=== PATIENT | female | born 1980 ===

== ENCOUNTER 2016-11-30 10:36 | Emergency (ER) | payer MEDICAID ==
[2016-11-30 10:43] VITALS: BMI 22.3
[2016-11-30 10:44] VITALS: BP 129/66; RESP 20; TEMP 98.7; O2SAT 100
--- NOTE | 2016-11-30 11:47 | ED PDOC ---
HPI: Abdomen Time Seen by Provider: 11/30/16 10:55 Chief Complaint (Nursing): Palpitations Chief Complaint (Provider): Abdominal Pain History Per: Patient Additional Complaint(s): The patient is 36 yr old female with PMHx of anemia, presents to the ER with complaints of continued chest pain and palpitations x 1 month now, new onset epigastric abdominal pain. Seen in ED yesterday with the ssame complaints, Scheduled to see cardio oin Saturday. . Patient states she had similar symptoms in the past about 1 month ago. Patient reports she is on the depo shot. Patient denies fever, chest pain, nausea, vomiting, abdominal pain, diarrhea, back pain, headache, weakness or numbness. Past Medical History Reviewed: Nursing Documentation, Vital Signs Vital Signs: Last Vital Signs Temp 98.7 F 11/30/16 10:43 Pulse 66 11/30/16 11:51 Resp 20 11/30/16 10:43 BP 129/66 11/30/16 11:51 Pulse Ox 100 11/30/16 11:47 - Medical History PMH: Anemia - Family History Family History: States: Unknown Family Hx, Diabetes, Hypertension - Living Arrangements Living Arrangements: With Family - Social History Current smoker - smoking cessation education provided: No Alcohol: None Drugs: Denies - Immunization History Hx Tetanus Toxoid Vaccination: Yes Hx Influenza Vaccination: No Hx Pneumococcal Vaccination: No - Home Medications Home Medications: Ambulatory Orders Medication Instructions Recorded Ferrous Sulfate [Iron] 325 mg PO TID #90 capsule.er 11/22/16 methIMAzole [Tapazole] 10 mg PO 12/08/16 - Allergies Allergies/Adverse Reactions: Allergies Allergy/AdvReac Type Severity Reaction Status Date / Time No Known Allergies Allergy Verified 12/08/16 08:57 Review of Systems ROS Statement: Except As Marked, All Systems Reviewed And Found Negative Gastrointestinal: Positive for: Abdominal Pain Physical Exam - Reviewed Nursing Documentation Reviewed: Yes Vital Signs Reviewed: Yes - Physical Exam Appears: Positive for: Well, Non-toxic, No Acute Distress Head Exam: Positive for: ATRAUMATIC, NORMAL INSPECTION, NORMOCEPHALIC Skin: Positive for: Normal Color, Warm, DRY Eye Exam: Positive for: EOMI, Normal appearance, PERRL ENT: Positive for: Normal ENT Inspection Neck: Positive for: Normal, Painless ROM Cardiovascular/Chest: Positive for: Regular Rate, Rhythm Respiratory: Positive for: CNT, Normal Breath Sounds Gastrointestinal/Abdominal: Positive for: Bowel Sounds, Soft, Tenderness ( epigastric abdominal tenerness) Back: Positive for: Normal Inspection Extremity: Positive for: Normal ROM Neurologic/Psych: Positive for: Alert, Oriented - Laboratory Results Result Diagrams: 11/30/16 12:15 11/30/16 12:15 - ECG O2 Sat by Pulse Oximetry: 100 Medical Decision Making Medical Decision Making: CBC, COMP and UA resulted and discussed with Pt who demonstrated full understanding. Pt medicated with GI cocktail and Pepcid and great relief reported on re-eval abdomen soft, non tender and non distended on re-eval Disposition - Clinical Impression Clinical Impression: Gastritis - Patient ED Disposition Is Patient to be Admitted: No - Disposition Referrals: Jose Felix MD [Primary Care Provider] - Disposition: Routine/Home Disposition Time: 13:00 Condition: GOOD Instructions: Gastritis (ED)
[2016-11-30] MEDS ORDERED: Alum-Mag Hydrox-Simethicone Susp (30 mL) PO STA (11:48)
[2016-11-30 12:04] VITALS: PULSE 66
[2016-11-30 12:21] LABS: BASO % 0.3 % (0.0-2.0); EOS # 0.1 K/uL (0.0-0.7); EOS % 0.6 % (0.0-4.0); HEMATOCRIT 33.9 % (34.0-47.0); LYMPH # 1.4 K/uL (1.0-4.3); LYMPH % 17.8 % (20.0-40.0); MEAN CELL VOLUME 70.2 fl (81.0-99.0); MEAN CORPUSCULAR HEMOGLOBIN 21.1 pg (27.0-31.0); MEAN CORPUSCULAR HGB CONC 30.1 g/dL (33.0-37.0); MEAN PLATELET VOLUME 10.3 fl (7.2-11.7); MONO # 0.4 K/uL (0.0-0.8); MONO % 5.7 % (0.0-10.0); NEUT % 75.6 % (50.0-75.0); RED CELL DISTRIBUTION WIDTH 20.2 % (11.5-14.5); WHITE BLOOD COUNT 7.9 K/uL (4.8-10.8)
[2016-11-30 12:34] LABS: ALB/GLOB RATIO 1.2 (1.0-2.1); ALKALINE PHOSPHATASE 51 U/L (38-126); ALT/SGPT 11 U/L (9-52); AMYLASE 102 U/L (30-110); AST/SGOT 17 U/L (14-36); BILIRUBIN,TOTAL 0.4 mg/dl (0.2-1.3); BLOOD UREA NITROGEN 9 mg/dl (7-17); CALCIUM 9.2 mg/dL (8.4-10.2); CARBON DIOXIDE 22 mmol/L (22-30); CHLORIDE 108 mmol/L (98-107); GFR AFRICAN-AMERICAN > 60; GLUCOSE,RANDOM 100 mg/dL (65-105); LIPASE 91 U/L (23-300); POTASSIUM 4.1 MMOL/L (3.6-5.0); SODIUM 144 mmol/l (132-148); TOTAL PROTEIN 8.2 G/DL (6.3-8.2)
[2016-11-30 12:42] LABS: RBC URINE 1 /hpf (0-3); URINE BILIRUBIN NEGATIVE (NEGATIVE); URINE BLOOD NEGATIVE (NEGATIVE); URINE COLOR YELLOW (YELLOW); URINE GLUCOSE (UA) NEG (Normal); URINE KETONE NEGATIVE (NEGATIVE); URINE LEUKOCYTE ESTERASE TRACE Leu/uL (Negative); URINE PROTEIN NEGATIVE (NEGATIVE); URINE UROBILINOGEN 0.2-1.0 mg/dL (0.2-1.0); WBC URINE 1 /hpf (0-5)
[2016-11-30] MEDS ORDERED: Alum-Mag Hydrox-Simethicone Susp (30 mL) ONE (12:43)
--- NOTE | 2016-11-30 13:10 | RAD ---
PROCEDURE: CHEST RADIOGRAPH, 1 VIEW HISTORY: Chest pain COMPARISON: None available. FINDINGS: LUNGS: The lungs are well inflated and clear. PLEURA: No pneumothorax or pleural fluid seen. CARDIOVASCULAR: Normal. OSSEOUS STRUCTURES: No significant abnormalities. VISUALIZED UPPER ABDOMEN: Normal. OTHER FINDINGS: None. IMPRESSION: No active pulmonary disease.
--- NOTE | 2016-11-30 19:17 | CARD ---
APPROVED REPORT EKG Measurement Heart [id number] 126P32 [id number] <Conclusion> Normal sinus rhythm Normal ECG
== END 2016-11-30 17:30 | disposition home or self-care (01) ==
LOC: H.ER 10:36
DX: R07.9 Chest pain, unspecified (principal); D64.9 Anemia, unspecified; R10.13 Epigastric pain

== ENCOUNTER 2016-12-03 23:42 | Emergency (ER) | payer MEDICAID ==
[2016-12-03 23:44] VITALS: BMI 22.3
[2016-12-03 23:49] VITALS: BP 141/71; PULSE 84; RESP 18; TEMP 98.1; O2SAT 100
--- NOTE | 2016-12-04 02:08 | ED PDOC ---
HPI: Hypertension/Hypotension Time Seen by Provider: 12/04/16 01:00 Chief Complaint (Nursing): GI Problem Chief Complaint (Provider): palpitations History Per: Patient History/Exam Limitations: no limitations Onset/Duration Of Symptoms: Days (months), Waxing/Waning Current Symptoms Are (Timing): Gone Now Additional History Per: Patient Additional Complaint(s): 36 y/o female brought in by EMS for eval of intermittent palpitations x months. Patient notes most recent episode after laying down to go to bed. Patient notes associated nausea when she gets palpitations. Patient has appt to see press hand next week. Patient seen twice last week for same. Denies fever, headache, dizziness, nausea/vomiting, chest pain, shortness of breath, leg pain/ swelling, recent travel Past Medical History Reviewed: Historical Data, Nursing Documentation, Vital Signs Vital Signs: Last Vital Signs Temp 98.1 F 12/03/16 23:47 Pulse 84 12/03/16 23:47 Resp 18 12/03/16 23:47 BP 141/71 12/03/16 23:47 Pulse Ox 100 12/03/16 23:47 - Medical History PMH: Anemia - Family History Family History: States: Unknown Family Hx, Diabetes, Hypertension - Immunization History Hx Tetanus Toxoid Vaccination: Yes Hx Influenza Vaccination: No Hx Pneumococcal Vaccination: No - Home Medications Home Medications: Ambulatory Orders Medication Instructions Recorded Ferrous Sulfate [Iron] 325 mg PO TID #90 capsule.er 11/22/16 Ranitidine HCl [Zantac] 1 tab PO BID #40 tablet 11/29/16 - Allergies Allergies/Adverse Reactions: Allergies Allergy/AdvReac Type Severity Reaction Status Date / Time No Known Allergies Allergy Verified 11/29/16 10:34 Review of Systems ROS Statement: Except As Marked, All Systems Reviewed And Found Negative Cardiovascular: Positive for: Palpitations Physical Exam - Reviewed Nursing Documentation Reviewed: Yes Vital Signs Reviewed: Yes - Physical Exam Appears: Positive for: Well, Non-toxic, No Acute Distress Head Exam: Positive for: ATRAUMATIC, NORMAL INSPECTION, NORMOCEPHALIC Skin: Positive for: Normal Color Eye Exam: Positive for: Normal appearance ENT: Positive for: Normal ENT Inspection Cardiovascular/Chest: Positive for: Regular Rate, Rhythm Respiratory: Positive for: Normal Breath Sounds Gastrointestinal/Abdominal: Positive for: Normal Exam Extremity: Positive for: Normal ROM Neurologic/Psych: Positive for: Alert, Oriented - ECG ECG: Positive for: Viewed By Me (reviewed by ED attending) ECG Rhythm: Positive for: Sinus Rhythm O2 Sat by Pulse Oximetry: 100 - Progress ED Course And Treament: Chart reviewed, patient had full work up twice last week. Tolerating PO. Resting comfortably. Vitals stable. EKG WNL. Patient educated on findings, stressed importance of press hand follow up. Return to ED for worsening/concerning symptoms. Disposition - Clinical Impression Clinical Impression: Palpitations - Patient ED Disposition Is Patient to be Admitted: No Counseled Patient/Family Regarding: Studies Performed, Diagnosis, Need For Followup - Disposition Referrals: [facility] [place] [Outside] Disposition: Routine/Home Disposition Time: 02:09 Condition: STABLE Instructions: Palpitations (ED) Print Language: IVORIAN
--- NOTE | 2016-12-04 20:18 | CARD ---
APPROVED REPORT EKG Measurement Heart [id number] 134P46 [id number] <Conclusion> Normal sinus rhythm Normal ECG
== END 2016-12-04 02:10 | disposition home or self-care (01) ==
LOC: H.ER 23:42
DX: R00.2 Palpitations (principal); I10 Essential (primary) hypertension

== ENCOUNTER 2017-05-26 00:08 | Emergency (ER) | payer MEDICAID, OTHER ==
[2017-05-26 00:08] VITALS: BMI 22.3
[2017-05-26 00:33] VITALS: BP 129/42; PULSE 74; RESP 18; TEMP 98.1; O2SAT 100
--- NOTE | 2017-05-26 01:15 | ED PDOC ---
HPI: General Adult Time Seen by Provider: 05/26/17 00:20 Chief Complaint (Nursing): Palpitations Chief Complaint (Provider): Palpitations x 2 minutes, posterior neck pain History Per: Patient History/Exam Limitations: no limitations Onset/Duration Of Symptoms: Mins Have you had recent travel within the past 21 days to any of the following countries: [place], [place], [place] or [place]?: No Current Symptoms Are (Timing): Better Severity: Mild Pain Scale Rating Of: 2 Additional Complaint(s): Pt is 13 weeks and states she has hyperthyroid disorder. Pt reports getting intermittent palpitations in the past. Pt states she has palpitations for approx 2 minutes 1.5 hors [employer]. Pt states that they resolved spontaneously. PT states after she began having neck pain and posterior head pain. Pt states the pain goes to the right shoulder. PT has not had this pain in the past. Pt did not take anything for pain since she is . Past Medical History Reviewed: Historical Data, Nursing Documentation, Vital Signs Vital Signs: Last Vital Signs Temp 98.1 F 05/26/17 00:30 Pulse 74 05/26/17 00:30 Resp 18 05/26/17 00:30 BP 129/42 L 05/26/17 00:30 Pulse Ox 100 05/26/17 01:17 - Medical History PMH: Anemia, Hyperthyroidism - Surgical History Surgical History: No Surg Hx - Family History Family History: States: Unknown Family Hx, Diabetes, Hypertension - Living Arrangements Living Arrangements: With Family - Immunization History Hx Tetanus Toxoid Vaccination: Yes Hx Influenza Vaccination: No Hx Pneumococcal Vaccination: No - Home Medications Home Medications: Ambulatory Orders Medication Instructions Recorded Multivit/Folic Acid/I 1 tab PO DAILY 05/11/17 [ Plus] Propylthiouracil 50 mg PO DAILY 05/11/17 - Allergies Allergies/Adverse Reactions: Allergies Allergy/AdvReac Type Severity Reaction Status Date / Time No Known Allergies Allergy Verified 05/26/17 00:30 Review of Systems ROS Statement: Except As Marked, All Systems Reviewed And Found Negative Constitutional: Negative for: Fever, Chills, Sweats Cardiovascular: Positive for: Palpitations Respiratory: Negative for: Cough Psych: Positive for: Other Physical Exam - Reviewed Nursing Documentation Reviewed: Yes Vital Signs Reviewed: Yes - Physical Exam Appears: Positive for: Well, Non-toxic, No Acute Distress Head Exam: Positive for: ATRAUMATIC, NORMAL INSPECTION, NORMOCEPHALIC Skin: Positive for: Normal Color, Warm, DRY Eye Exam: Positive for: Normal appearance ENT: Positive for: Normal ENT Inspection Neck: Positive for: Normal, Painless ROM Cardiovascular/Chest: Positive for: Regular Rate, Rhythm Respiratory: Positive for: Normal Breath Sounds. Negative for: Accessory Muscle Use, Respiratory Distress Gastrointestinal/Abdominal: Positive for: Normal Exam Back: Positive for: Normal Inspection Extremity: Positive for: Normal ROM Neurologic/Psych: Positive for: Alert, Oriented - Laboratory Results Result Diagrams: 05/26/17 01:29 05/26/17 01:29 - ECG O2 Sat by Pulse Oximetry: 100 Pulse Ox Interpretation: Normal Medical Decision Making Medical Decision Making: Discussed case with Dr. Ovalles. EKG - NSR Disposition - Clinical Impression Clinical Impression: Palpitations - Patient ED Disposition Is Patient to be Admitted: No - Disposition Disposition: Routine/Home Disposition Time: 03:46 Condition: GOOD Instructions: Palpitations (ED) Forms: [employer] (Yoruba)
[2017-05-26 01:31] LABS: HEMATOCRIT 36.7 % (34.0-47.0); MEAN CELL VOLUME 94.4 fl (81.0-99.0); MEAN CORPUSCULAR HEMOGLOBIN 31.8 pg (27.0-31.0); MEAN CORPUSCULAR HGB CONC 33.7 g/dL (33.0-37.0); WHITE BLOOD COUNT 9.2 K/uL (4.8-10.8)
[2017-05-26 01:43] LABS: ALB/GLOB RATIO 1.2 (1.0-2.1); ALKALINE PHOSPHATASE 44 U/L (38-126); ALT/SGPT 19 U/L (9-52); AST/SGOT 17 U/L (14-36); BILIRUBIN,TOTAL 0.3 mg/dl (0.2-1.3); BLOOD UREA NITROGEN 9 mg/dl (7-17); CALCIUM 8.8 mg/dL (8.4-10.2); CARBON DIOXIDE 23 mmol/L (22-30); CHLORIDE 105 mmol/L (98-107); GFR AFRICAN-AMERICAN > 60; GLUCOSE,RANDOM 101 mg/dL (65-105); POTASSIUM 4.5 MMOL/L (3.6-5.0); SODIUM 138 mmol/l (132-148); TOTAL PROTEIN 6.7 G/DL (6.3-8.2)
[2017-05-26 02:14] LABS: THYROID STIMULATING HORMONE 0.03 mIU/ML (0.46-4.68)
--- NOTE | 2017-05-28 08:54 | CARD ---
APPROVED REPORT EKG Measurement Heart [id number] 142P44 [id number] <Conclusion> Normal sinus rhythm with sinus arrhythmia Possible Inferior infarct, age undetermined
== END 2017-05-26 04:15 | disposition home or self-care (01) ==
LOC: H.ER 00:08
DX: R00.2 Palpitations (principal); M54.2 Cervicalgia